=== PATIENT | male | born 1980 | race Caucasian/White ===

== ENCOUNTER 2017-03-06 23:45 | Observation (INO) | payer BC ==
--- NOTE | ~2017-03-06 | HP ---
History And Physical [address] [place]. [address] NAME: ALYSON JOSEPH : 82 STATUS : DIS IN PAT#: [id number] AGE: 36 ADM/REG DATE : 03/06/17 MR#: [id number] REPORT SERV DATE: 03/07/17 DICTATED BY: JOSUÉ CORONA DATE: 03/07/17 REPORT STATUS : Draft TRANSCRIBED BY: MODWilliams DATE: 03/07/17 DATE OF ADMISSION: 03/06/2017 CHIEF COMPLAINT: Chest pain. HISTORY OF PRESENT ILLNESS: 36-year-old man, no history of congenital or acquired heart disease, cigarette smoker of less than a pack a day for some eight years, having quit some seven years ago, no history of hypertension or diabetes, uncertain lipid status, no family history of premature coronary disease. The patient has experienced two episodes of chest pain during the last two weeks. His first episode occurred at rest and lasted several hours. He describes this as a left of midline chest discomfort that did not radiate and lasted a few hours. This was not associated with nausea, vomiting, dyspnea, or diaphoresis. Yesterday, he had another episode of chest pain, which was described as a sharp left-sided chest pain that did not radiate. This lasted for at least an hour. EKG in the [facility] was unremarkable. Cardiac markers were negative. Cardiac markers upon transfer here were negative and EKG here was unremarkable. Myocardial perfusion scan was obtained this morning to stage 5 with a Adan protocol, which returned entirely normal. The patient has not had recurrent chest pain. PAST MEDICAL HISTORY: 1. Thyroid cancer-status post thyroidectomy and underwent thyroid replacement therapy. 2. GERD. HOME MEDICATIONS: Aspirin 81 mg daily, levothyroxine 150 mcg daily, and pantoprazole 40 mg daily. ALLERGIES: NKDA. SOCIAL HISTORY: The patient is . He owns a restaurant. He does not now smoke. He does not drink alcohol. FAMILY HISTORY: No first-degree relatives with history of premature coronary artery disease. REVIEW OF SYSTEMS: Unremarkable except as noted in the medical history form of today's date. PHYSICAL EXAMINATION: GENERAL: No acute distress. VITAL SIGNS: Blood pressure 127/80, O2 saturation 97%, pulse 72 and regular. NECK: No JVD. LUNGS: Clear to auscultation and percussion. CARDIAC: Totally unremarkable. ABDOMEN: Benign. EXTREMITIES: Warm without edema. History And Physical [address] [place]. [address] NAME: ALYSON JOSEPH : 82 STATUS : DIS IN PAT#: [id number] AGE: 36 ADM/REG DATE : 03/06/17 MR#: [id number] REPORT SERV DATE: 03/07/17 DICTATED BY: JOSUÉ CORONA DATE: 03/07/17 REPORT STATUS : Draft TRANSCRIBED BY: DAYDAY DATE: 03/07/17 DATA: EKG; sinus rhythm, rate of 61, normal axes and intervals, normal EKG. LABS: BUN and creatinine 12 and 0.95, eGFR 103, CK 308, CK-MB 2.3, troponin I undetectable. ASSESSMENT/PLAN: 1. Chest pain-not typical for angina, and with negative EKG and negative cardiac markers, and with normal myocardial perfusion scan to a very high workload per Adan protocol, I have a low index of suspicion of a cardiac basis. I have counseled the patient regarding limitations of noninvasive study. I am recommending he continue aspirin 81 mg daily, and telephone our office if he has recurrent symptoms. Follow up in two weeks. 2. Hypothyroidism-repleted. 3. Lipid status-unknown. We will evaluate in the office. /DAYDAY Josué Corona M.D. / [id number] CC: Tania Calvo M.D.
[2017-03-07 03:37] LABS: BUN (BLOOD UREA NITROGEN) 12 MG/DL (6-23); CALCIUM, SERUM 9.1 MG/DL (8.5-10.4); CHLORIDE, SERUM 105 MMOL/L (96-112); CO2 (CARBON DIOXIDE) 28 MMOL/L (24-34); CPK 308 U/L (0-200); CREATININE 0.95 MG/DL (0.70-1.30); GFR AFRICAN AMERICAN 120 ML/MIN (>=60); GFR NON AFRICAN AMERICAN 103 ML/MIN (>=60); GLUCOSE, SERUM 86 MG/DL (60-99); POTASSIUM, SERUM 3.5 MMOL/L (3.5-5.3); SODIUM, SERUM 144 MMOL/L (135-148); TROPONIN I <0.02 NG/ML (<0.05)
[2017-03-07 03:40] LABS: CK-MB 2.3 NG/ML
[2017-03-07 08:36] LABS: BASOPHILS 0.3 %; BASOPHILS ABSOLUTE 0.02 10/3/uL (0.0-0.16); EOSINOPHILS 2.7 %; HEMATOCRIT 50.5 % (40.0-51.0); HEMOGLOBIN 17.6 g/dL (13.6-17.8); IMMATURE GRANULOCYTES 0.1 %; IMMATURE GRANULOCYTES ABSOLUTE 0.01 10/3/uL (0.0-0.11); LYMPHOCYTES 30.4 %; LYMPHOCYTES ABSOLUTE 2.25 10/3/uL (0.67-4.30); MEAN CORPUS HGB CONC 34.9 g/dL (32.0-36.0); MEAN CORPUSCULAR HEMOGLOB 32.7 pg (26.0-34.0); MEAN CORPUSCULAR VOLUME 93.9 fL (80-100); MEAN PLATELET VOLUME 11.1 fL (9.2-13.0); MONOCYTES ABSOLUTE 0.52 10/3/uL (0.21-1.20); NEUTROPHILS 59.5 %; NEUTROPHILS ABSOLUTE 4.41 10/3/uL (2.02-8.40); PLATELET COUNT 263 10/3/uL (150-400); RBC DISTRIBUTION WIDTH 12.5 % (12.0-16.0); RED CELL COUNT 5.38 10/6/uL (4.7-6.1); WHITE BLOOD CELLS 7.4 10/3/uL (4.5-10.5)
[2017-03-07 08:42] LABS: MANUAL DIFF NO %
[2017-03-07 08:45] LABS: INTERNATIONAL NORMAL RATI 1.1 UNITS (-); PROTIME (NOT ORD) 13.9 SEC (12.0-14.5)
[2017-03-07] MEDS ORDERED: ASAB PO (10:38)
[2017-03-07] MEDS ORDERED: PROTONIX PO (10:39)
[2017-03-07] MEDS ORDERED: SYN.15 PO (10:39)
== END 2017-03-07 15:22 | disposition home or self-care (01) ==
LOC: 6NO 23:45
PROVIDERS: Internal Medicine Cardiovascular Disease
DX: I20.0 Unstable angina (principal); E89.0 Postprocedural hypothyroidism; K21.9 Gastro-esophageal reflux disease without esophagitis
CPT/HCPCS: 78452; 80048; 82550; 82553; 84484; 85025; 85610; 85730; 93005; 93017; 96372; 96374; A9270-GY; A9502; G0378; G0379